=== PATIENT | female | born 1955 | race Caucasian/White ===

== ENCOUNTER → 2016-08-25 | Day surgery (SDC) | payer MEDICARE, OTHER ==
[~2016-08-25] MED LIST: ASPI-482 PO; BUPR1PAT TD; CARV6.252 PO; CIPR500T94 PO; CRESTOR10 MG PO; CYCL10TA2 PO; DICY20TA3 PO; ESOM40CA PO; GABA-585 PO; HYDR10TA2 PO; HYDR25TA PO; IV RINGERS,LACTATED 1000ML 1,000 ML IV SCH; LIDOCAINE 2% PF Vial for OR 5 ML VIAL. ONE; LISI10TA2 PO; LUBI24CA5 PO; MECL25TA3 PO; MONT10TA6 PO; OMEG500C PO; PROM12.56 PO; PROPOFOL 20 ML IV ONE; PROPOFOL 40 ML IV ONE; SUCR1ORA2 PO; ZOLP10TA4 PO; ZOLP5TAB5 PO
[2016-08-25 10:29] VITALS: BP 145/72
--- NOTE | 2016-08-26 14:49 | PATHOLOGY ---
PATHOLOGY REPORT * * * * * * * * FINAL DIAGNOSIS: A. Small bowel biopsy: - No significant pathologic abnormalities. B. Gastric biopsy, antrum: - Consistent with reactive gastropathy. C. Esophageal biopsy, distal esophagus: - Segments of hyperplastic squamous esophageal mucosa and columnar-lined mucosa showing mild chronic inflammation and focal intestinal metaplasia with goblet cells, consistent with Larry's change. D. Colon biopsy, transverse colon polyp: - Tubular adenoma. E. Colon biopsies, sigmoid polyps: - Hyperplastic polyps. COMMENT: Sections of the small bowel biopsy reveal segments of small intestine and duodenal mucosa. Where best oriented, the mucosal villi appear normal. There are no sprue-like changes or significant inflammatory changes. Sections of the gastric antral biopsy show congestion, foveolar hyperplasia, and no significant inflammation. An immunoperoxidase stain for Helicobacter is obtained. There are no Helicobacter organisms identified. Sections of the distal esophageal biopsy reveal segments of hyperplastic squamous esophageal mucosa with contiguous and separate segments of columnar-lined mucosa showing mild chronic inflammation and focal intestinal metaplasia with goblet cells, consistent with Larry's change. There is no dysplasia or evidence of malignancy. Sections of the transverse colon biopsy reveal a tubular adenoma showing no high-grade dysplasia or evidence of malignancy. Sections of the sigmoid colon biopsies reveal hyperplastic polyps. There are no adenomatous changes or evidence of malignancy. (JPM:mgr; d/t: 08/26/16) Special Stain Performed: Immunoperoxidase stain for Helicobacter (B1) REPORT ELECTRONICALLY SIGNED BY: Rigoberto Valladares M.D. DATE/TIME: 08/26/2016 14:48 * * * * * * * * GROSS PATHOLOGY: A. Received in formalin labeled "Nunn, Arielle and bx small bowel," are 3 segments of peralta soft tissue measuring 1.2 x 0.3 x 0.3 cm in aggregate dimensions and ranging from 0.3 to 0.5 cm in maximum dimension. The specimen is submitted entirely in cassette A1. B. Received in formalin labeled "Nunn, Arielle and bx gastric antrum," is a segment of peralta soft tissue measuring 0.3 cm in maximum dimension. The specimen is submitted entirely in cassette B1. C. Received in formalin labeled "Nunn, Arielle and bx distal esophagus," are 3 segments of peralta soft tissue measuring 1.1 x 0.3 x 0.2 cm in aggregate dimensions and ranging from 0.2 to 0.5 cm in maximum dimension. The specimen is submitted entirely in cassette C1. D. Received in formalin labeled "Arielle Nunn and padmini transverse colon polyp," is a segment of peralta soft tissue measuring 0.4 cm in maximum dimension. The specimen is submitted entirely in cassette D1. E. Received in formalin labeled "Arielle Nunn and padmini sigmoid polyps," are 4 segments of peralta soft tissue measuring 1.4 x 0.2 x 0.2 cm in aggregate dimensions and ranging from 0.2 to 0.6 cm in maximum dimension. The specimen is submitted entirely in cassette E1. (TTL; 08/25/2016) INITIAL CPT CODE(S): A; 44916 B; 15206, 01588 C; 86384 D; 99306 E; 80685 Professional services performed [place] [facility] [place] [address] Technical services performed by [facility] at [address] [place] [address] [address], [place] [address]. SPECIMEN(S) RECEIVED: A.Small bowel biopsy B.Gastric antrum C.Distal esophagus D.Biopsy polyp transverse colon E.Biopsy sigmoid colon polyps CLINICAL HISTORY: Abdominal pain, constipation; colon polyp PATIENT: ARIELLE NUNN /AGE: 801/08/1955 (Age: 61) PATIENT #: [id number] ALT CASE #: SPECIMEN COLLECTION DATE: 08/25/2016 SPECIMEN RECEIVED DATE: 08/25/2016 [facility] - [address] [place] [address] - PHONE: [phone] * * * END OF REPORT * * *
== END | disposition home or self-care (01) ==
LOC: ENDOS 08:27
PROVIDERS: ATTEND Internal Medicine Gastroenterology
DX: K21.0 Gastro-esophageal reflux disease with esophagitis (principal); K31.9 Disease of stomach and duodenum, unspecified; K64.0 First degree hemorrhoids; D12.3 Benign neoplasm of transverse colon; D12.5 Benign neoplasm of sigmoid colon; E78.00 Pure hypercholesterolemia, unspecified; I10 Essential (primary) hypertension; K21.9 Gastro-esophageal reflux disease without esophagitis; M19.90 Unspecified osteoarthritis, unspecified site; F41.9 Anxiety disorder, unspecified; Z86.73 Personal history of transient ischemic attack (TIA), and cerebral infarction without residual deficits; Z90.49 Acquired absence of other specified parts of digestive tract; Z90.710 Acquired absence of both cervix and uterus; Z98.51 Tubal ligation status
CPT/HCPCS: 43239; 45380; J2704

== ENCOUNTER → 2017-11-16 | Day surgery (SDC) | payer MEDICARE, OTHER ==
[~2017-11-16] MED LIST changes: -ASPI-482 PO; -BUPR1PAT TD; -CARV6.252 PO; -CIPR500T94 PO; -CRESTOR10 MG PO; -CYCL10TA2 PO; -DICY20TA3 PO; -ESOM40CA PO; -GABA-585 PO; -HYDR10TA2 PO; -HYDR25TA PO; +IV RINGERS,LACTATED 1000ML 1,000 ML IV; -IV RINGERS,LACTATED 1000ML 1,000 ML IV SCH; +LIDOCAINE 1% PF 2 ML VIAL. ID; +LIDOCAINE 2% PF Vial for OR 5 ML VIAL.; -LIDOCAINE 2% PF Vial for OR 5 ML VIAL. ONE; -LISI10TA2 PO; -LUBI24CA5 PO; -MECL25TA3 PO; +MIDAZOLAM HCL/PF 2 MG/2 ML VIAL. IV; -MONT10TA6 PO; -OMEG500C PO; -PROM12.56 PO; +PROPOFOL 20 ML IV; -PROPOFOL 20 ML IV ONE; -PROPOFOL 40 ML IV ONE; -SUCR1ORA2 PO; -ZOLP10TA4 PO; -ZOLP5TAB5 PO; +fentaNYL PF VIAL 100 MCG/2 ML VIAL IV
[2017-11-16] MEDS: IV RINGERS,LACTATED 1000ML 1,000 ML IV (08:42)
== END | disposition home or self-care (01) ==
LOC: ENDOS 08:00
DX: K21.0 Gastro-esophageal reflux disease with esophagitis (principal); K31.89 Other diseases of stomach and duodenum; I10 Essential (primary) hypertension; E78.00 Pure hypercholesterolemia, unspecified; F32.9 Major depressive disorder, single episode, unspecified; F41.9 Anxiety disorder, unspecified; Z98.42 Cataract extraction status, left eye; Z98.41 Cataract extraction status, right eye; Z96.1 Presence of intraocular lens; Z86.73 Personal history of transient ischemic attack (TIA), and cerebral infarction without residual deficits; Z87.01 Personal history of pneumonia (recurrent); Z86.010 Personal history of colon polyps; Z90.49 Acquired absence of other specified parts of digestive tract; Z98.51 Tubal ligation status; Z90.710 Acquired absence of both cervix and uterus; Z87.39 Personal history of other diseases of the musculoskeletal system and connective tissue; Z96.653 Presence of artificial knee joint, bilateral; Z88.5 Allergy status to narcotic agent; Z91.041 Radiographic dye allergy status; Z88.8 Allergy status to other drugs, medicaments and biological substances; M19.90 Unspecified osteoarthritis, unspecified site; I42.9 Cardiomyopathy, unspecified; Z80.0 Family history of malignant neoplasm of digestive organs; Z82.49 Family history of ischemic heart disease and other diseases of the circulatory system; Z83.3 Family history of diabetes mellitus; Z80.41 Family history of malignant neoplasm of ovary; Z72.89 Other problems related to lifestyle; Z87.891 Personal history of nicotine dependence; Z79.899 Other long term (current) drug therapy
CPT/HCPCS: 43239; 88305; 88342; J2001; J2704